=== PATIENT | female | born 1990 | race Caucasian/White ===

== ENCOUNTER 2016-11-07 11:07 | Emergency (ER) | payer MEDICAID ==
[~2016-11-07] VITALS: Ht 170.2 cm; Wt 79.1 kg
[~2016-11-07 11:07] MED LIST: FLEXERIL 1010 MG/TAB PO; IRON325 MG PO; LEXAPRO 10MG10 MG PO; LEXAPRO 5MG5 MG PO; LEXAPRO20 MG PO; MOTRIN 800800 MG/TAB PO; NORCO 325 MG-51 TAB PO; NUVARING VAG RING VG; PERCOCET 325 MG1 TA2 PO; PRENATAL1 TA1 PO; TUSS PO; TYLENOL 325MG325 MG PO; VITAMINC250CH; ZITHROMAX Z PA250 MG PO
[2016-11-07 11:11] VITALS: BP 115/76; PULSE 86; TEMP 98
== END 2016-11-07 13:11 | disposition home or self-care (01) ==
LOC: COL.ER 11:07
DX: S60.222A Contusion of left hand, initial encounter (principal); X50.9XXA Other and unspecified overexertion or strenuous movements or postures, initial encounter; Y93.K1 Activity, walking an animal